=== PATIENT | female | born 1940 | race Hispanic/Latino ===

== ENCOUNTER 2019-01-02 16:37 | Inpatient (IN) | payer MEDICARE ==
[2019-01-03 05:17] LABS: Bacteria,Urine 1+ /HPF (Negative); Bilirubin,Urine NEG (Negative); Blood,Urine NEG (Negative); Color,Urine Yellow (Yellow); Mucus,Urine FEW /HPF; Protein,Urine <15 mg/dL mg/dL (Negative); Urobilinogen,Urine < 2.0 mg/dL (<2.0)
[2019-01-03 07:37] LABS: Basophils % (Auto) 0.4 % (0.0-1.8); Eosinophils # (Auto) 0.1 K/mm3 (0.0-0.4); Eosinophils % (Auto) 1.1 % (0.0-4.3); Hematocrit 34.4 % (30.3-42.9); Hemoglobin 11.8 gm/dl (10.1-14.3); Lymphocytes % (Auto) 15.9 % (13.4-35.0); Mean Corpuscular HGB Conc 34 % (30-34); Mean Corpuscular Volume 95 fl (79-97); Monocytes # (Auto) 0.6 K/mm3 (0.0-0.8); Monocytes % (Auto) 9.2 % (0.0-7.3); Platelet Count 126 K/mm3 (140-440); Red Blood Count 3.62 M/mm3 (3.65-5.03); Red Cell Distribution Width 13.6 % (13.2-15.2)
[2019-01-03 08:03] LABS: Alanine Aminotransferase 17 units/L (7-56); Albumin 3.4 g/dL (3.9-5); BUN/Creatinine Ratio 21; Blood Urea Nitrogen 15 mg/dL (7-17); Calcium 9.1 mg/dL (8.4-10.2); Chol/HDL Ratio 2.15 %; HDL Cholesterol 60 mg/dL (40-59); Hemolysis Index 18; LDL Cholesterol,Direct 71 mg/dL (50-130)
--- NOTE | 2019-01-03 09:10 | History and Physical Report ---
GP History & Physical - History of Present Illness Date of admission: 01/02/19 Date of Examination: 01/03/19 Reason for Admission: Danger to self, Severe anxiety/depression Chief Complaint: Depressed and suicidal History of Present Illness: The patient is a 78yo female with history of MDD, Alzheimer's dementia and multiple medical problems including Arthritis and Lupus. She was transferred from [facility] after medical stabilization following an overdose of Tylenol. Patient reportedly attempted suicide by overdosing on 15 tablets of Tylenol on 12/29/18. She continues to endorse being severely depressed. Her 1 year ago. This is a significant stressor for her. She fears being put in a Senior [facility] too. She endorses decreased appetite, energy and sleep. She denies hallucinations/paranoia. 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's disease, without behavioral disturbance (Acute) Reaction to Hospitalization: Accepting Substance History - Substance History Drug Use: none Hx Tobacco Use: No Alcohol Use: No Past psychiatric history - Past Medical History Past Medical History: arthritis, other (Lupus) - past Psychiatric treatment and history Psych: Depression - Social History Social history: , Lives alone (daughter lives within a walking distance) Review of Systems All systems: negative Psychiatric: anxiety, change in sleep habits, change in appetite, depression, hopelessness, anhedonia Results - Results Labs/Vitals: Laboratory Last Values WBC 6.0 K/mm3 (4.5-11.0) 01/03/19 07:18 RBC 3.62 M/mm3 (3.65-5.03) L 01/03/19 07:18 Hgb 11.8 gm/dl (10.1-14.3) 01/03/19 07:18 Hct 34.4 % (30.3-42.9) 01/03/19 07:18 MCV 95 fl (79-97) 01/03/19 07:18 MCH 33 pg (28-32) H 01/03/19 07:18 MCHC 34 % (30-34) 01/03/19 07:18 RDW 13.6 % (13.2-15.2) 01/03/19 07:18 Plt Count 126 K/mm3 (140-440) L 01/03/19 07:18 Lymph % (Auto) 15.9 % (13.4-35.0) 01/03/19 07:18 [place] % (Auto) 9.2 % (0.0-7.3) H 01/03/19 07:18 Eos % (Auto) 1.1 % (0.0-4.3) 01/03/19 07:18 Baso % (Auto) 0.4 % (0.0-1.8) 01/03/19 07:18 Lymph # 1.0 K/mm3 (1.2-5.4) L 01/03/19 07:18 [place] # 0.6 K/mm3 (0.0-0.8) 01/03/19 07:18 Eos # 0.1 K/mm3 (0.0-0.4) 01/03/19 07:18 Baso # 0.0 K/mm3 (0.0-0.1) 01/03/19 07:18 Seg Neutrophils % 73.4 % (40.0-70.0) H 01/03/19 07:18 Seg Neutrophils # 4.4 K/mm3 (1.8-7.7) 01/03/19 07:18 Sodium 136 mmol/L (137-145) L 01/03/19 07:18 Potassium 4.4 mmol/L (3.6-5.0) 01/03/19 07:18 Chloride 102.2 mmol/L (98-107) 01/03/19 07:18 Carbon Dioxide 23 mmol/L (22-30) 01/03/19 07:18 15 mmol/L 01/03/19 07:18 BUN 15 mg/dL (7-17) 01/03/19 07:18 0.7 mg/dL (0.7-1.2) 01/03/19 07:18 Estimated GFR > 60 ml/min 01/03/19 07:18 21 % 01/03/19 07:18 Glucose 88 mg/dL (65-100) 01/03/19 07:18 POC Glucose 92 (70-105) 01/02/19 23:02 5.4 % (4-6) 01/03/19 07:18 Calcium 9.1 mg/dL (8.4-10.2) 01/03/19 07:18 0.20 mg/dL (0.1-1.2) 01/03/19 07:18 AST 19 units/L (5-40) 01/03/19 07:18 ALT 17 units/L (7-56) 01/03/19 07:18 60 units/L (35-129) 01/03/19 07:18 5.1 g/dL (6.3-8.2) L 01/03/19 07:18 3.4 g/dL (3.9-5) L 01/03/19 07:18 2.0 % 01/03/19 07:18 Triglycerides 101 mg/dL (2-149) 01/03/19 07:18 Cholesterol 129 mg/dL (50-199) 01/03/19 07:18 71 mg/dL (50-130) 01/03/19 07:18 60 mg/dL (40-59) H 01/03/19 07:18 2.15 % 01/03/19 07:18 Yellow (Yellow) 01/03/19 04:58 Slightly-cloudy (Clear) 01/03/19 04:58 5.0 (5.0-7.0) 01/03/19 04:58 Ur Specific [place] 1.009 (1.003-1.030) 01/03/19 04:58 <15 mg/dl mg/dL (Negative) 01/03/19 04:58 Neg mg/dL (Negative) 01/03/19 04:58 Neg mg/dL (Negative) 01/03/19 04:58 Neg (Negative) 01/03/19 04:58 Neg (Negative) 01/03/19 04:58 Neg (Negative) 01/03/19 04:58 < 2.0 mg/dL (<2.0) 01/03/19 04:58 Ur Leukocyte Esterase Lg (Negative) 01/03/19 04:58 127.0 /HPF (0.0-6.0) H 01/03/19 04:58 4.0 /HPF (0.0-6.0) 01/03/19 04:58 1+ /HPF (Negative) 01/03/19 04:58 Few /HPF 01/03/19 04:58 Last Vital Signs Temp 97.7 F 01/02/19 22:48 Pulse 65 01/02/19 22:48 Resp 18 01/02/19 22:48 BP 142/59 01/02/19 22:48 Pulse Ox 97 01/02/19 22:48 Physical Examination - Constitutional Vitals: Vital Signs Temp Pulse Resp BP Pulse Ox 97.7 F 65 18 142/59 97 01/02/19 22:48 01/02/19 22:48 01/02/19 22:48 01/02/19 22:48 01/02/19 22:48 Temperature -Last 24 Hours Temperature 97.7 F General appearance: Present: no acute distress, well-nourished - EENT Eyes: Present: PERRL, EOM intact ENT: hearing intact, clear oral mucosa - Neck Neck: Present: supple, normal ROM - Respiratory Respiratory effort: normal Mental Status Exam - Vital signs Last Vital Signs Temp 97.7 F 01/02/19 22:48 Pulse 65 01/02/19 22:48 Resp 18 01/02/19 22:48 BP 142/59 01/02/19 22:48 Pulse Ox 97 01/02/19 22:48 - Exam Orientation: time, place, person Affect: depressed Mood: congruent with affect Thought Process: Intact Perceptions: none Speech: normal rate and pattern Concentration: focused Motor activity: lethargic Level of consciousness: alert Memory: Recent Impaired Sleep Symptoms: Insomnia Appetite: decreased Interaction: cooperative Assessment and Plan - Psychiatric problem (1) MDD (major depressive disorder), recurrent episode, severe Current Visit: Yes Status: Acute plan to address problem: Patient will be admitted for inpatient psychiatric evaluation, medication adjustment and close monitoring The patient's behavior, mood, sleep and appetite will be closely monitored. Patient will be enrolled in individual and group therapeutic sessions and encouraged to attend. Patient will be provided with a safe and structured environment. Patient's physical health needs will be addressed by the Hospitalist. Social Assessment will be completed and the Manager Pulmonary will work with patient and family to ensure a suitable and safe disposition Medication adjustment will be made as clinically indicated The patient agreed on the treatment plan, understood the risk, benefit, alternative treatment, potential consequence of no treatment, and gave informed consent. 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, without behavioral disturbance Current Visit: Yes Status: Acute Physician Certification - Certification Statement Physician Certification Statement: This is an acknowledgement statement that TIFFANIE KEANE is a 78 year old F who requires inpatient psychiatric admission for treatment which could reasonably be expected to improve the patient's condition for Depression Estimated period of time patient will need to remain in the hospital: 7 days Plan for post-hospital care: Out-patient care Medications & Allergies - Medications Allergies/Adverse Reactions: Allergies codeine Allergy (Unverified 01/02/19 17:51) Unknown promethazine [From Phenergan] Adverse Reaction (Unverified 01/02/19 17:51) Unknown Sulfa (Sulfonamide Antibiotics) Adverse Reaction (Unverified 01/02/19 17:51) Unknown Home Medications: Home Medications Medication Instructions Recorded Confirmed Last Taken Type Atorvastatin 40 mg PO QHS 01/02/19 01/02/19 01/02/19 History Clopidogrel [Plavix] 75 mg PO QPM 01/02/19 01/02/19 01/02/19 History Desvenlafaxine Fumarate 50 mg PO DAILY 01/02/19 01/02/19 01/02/19 History [Desvenlafaxine Fumarate ER] Hydroxychloroquine [Plaquenil] 200 mg PO QDAY 01/02/19 01/02/19 01/02/19 History Levothyroxine 75 mcg PO DAILY 01/02/19 01/03/19 01/02/19 History Lisinopril [Zestril TAB] 20 mg PO QDAY 01/02/19 01/03/19 01/02/19 History Montelukast [Singulair] 10 mg PO DAILY 01/02/19 01/03/19 01/02/19 History Pantoprazole [Protonix TAB] 40 mg PO DAILY 01/02/19 01/02/19 Unknown History Potassium Chloride [Klor-Con 10 meq PO BID 01/02/19 01/02/19 01/02/19 History Sprinkle] Risperdal 1.5 mg PO DAILY 01/02/19 01/02/19 01/02/19 History Risperdal 2 mg PO QPM 01/02/19 01/02/19 Unknown History Rivastigmine Patch 13.3mg/24hr 13.3 mg TRANSDERMA QDAY 01/02/19 01/02/19 01/02/19 History predniSONE 5 mg PO DAILY 01/02/19 01/02/19 01/02/19 History traMADol 50 mg PO Q12HR PRN 01/02/19 01/02/19 01/02/19 History Active Medications: Generic Name Dose Route Start Last Admin Trade Name Tara PRN Reason Stop Dose Admin Mirtazapine 15 mg 01/03/19 22:00 Remeron PO QHS [facility] Miscellaneous Medication 13.3 mg 01/03/19 10:00 Rivastigmine Patch 13.3mg/24hr TRANSDERMA QDAY [facility] Miscellaneous Medication 1.5 mg 01/03/19 10:00 Risperdal PO DAILY [facility] Miscellaneous Medication 2 mg 01/03/19 18:00 Risperdal PO QPM [facility] Miscellaneous Medication 50 mg 01/03/19 10:00 Desvenlafaxine Fumarate [Desvenlafaxine Fumarate Er] PO DAILY NASEEM
[2019-01-03] MEDS ORDERED: risperiDONE 1 MG TAB PO SCH (10:00)
[2019-01-03] MEDS ORDERED: RISPERIDONE 1.5 MG PO SCH (10:00)
[2019-01-03] MEDS ORDERED: RIVASTIGMINE TP SCH (10:00)
[2019-01-03] MEDS ORDERED: [UNRECOGNIZED DRUG - OTHER] PO SCH (10:00)
[2019-01-03] MEDS: DULoxetine 30 MG CAP PO SCH ×2 (11:33→21:09)
[2019-01-03] MEDS: risperiDONE 1 MG TAB PO SCH (17:03)
[2019-01-03] MEDS ORDERED: RISPERDAL 2 MG PO SCH (18:00)
--- NOTE | 2019-01-03 19:04 | Consultation ---
History of Present Illness - Reason for Consult Consult date: 01/03/19 MEDICAL MANAGEMENT, RIGHT FLANK PAIN Requesting physician: KAMRYN PARRA - History of Present Illness Patient is a 78 year old female with hx of of MDD, Alzheimer's dementia and multiple medical problems including Arthritis and Lupus. She was transferred from [facility] after medical stabilization following an overdose of Tylenol. Patient reportedly attempted suicide by overdosing on 15 tablets of Tylenol on 12/29/18. [facility] and we are asked to evaluate. She reports right flank pain otherwise informs me that she is depressed. She denies any fever, nausea or vomiting, she reportts increased urine frequency but no dysuria Past History Past Medical History: arthritis, other (Lupus) Past Surgical History: denies: No surgical history Social history: , Lives alone (daughter lives within a walking distance) Family history: no significant family history Medications and Allergies Allergies Allergy/AdvReac Type Severity Reaction Status Date / Time codeine Allergy Unknown Unverified 01/02/19 17:51 promethazine [From Phenergan] AdvReac Unknown Unverified 01/02/19 17:51 Sulfa (Sulfonamide AdvReac Unknown Unverified 01/02/19 17:51 Antibiotics) Home Medications Medication Instructions Recorded Confirmed Last Taken Type Atorvastatin 40 mg PO QHS 01/02/19 01/02/19 01/02/19 History Clopidogrel [Plavix] 75 mg PO QPM 01/02/19 01/02/19 01/02/19 History Desvenlafaxine Fumarate 50 mg PO DAILY 01/02/19 01/02/19 01/02/19 History [Desvenlafaxine Fumarate ER] Hydroxychloroquine [Plaquenil] 200 mg PO QDAY 01/02/19 01/02/19 01/02/19 History Levothyroxine 75 mcg PO DAILY 01/02/19 01/03/19 01/02/19 History Lisinopril [Zestril TAB] 20 mg PO QDAY 01/02/19 01/03/19 01/02/19 History Montelukast [Singulair] 10 mg PO DAILY 01/02/19 01/03/19 01/02/19 History Pantoprazole [Protonix TAB] 40 mg PO DAILY 01/02/19 01/02/19 Unknown History Potassium Chloride [Klor-Con 10 meq PO BID 01/02/19 01/02/19 01/02/19 History Sprinkle] Risperdal 1.5 mg PO DAILY 01/02/19 01/02/19 01/02/19 History Risperdal 2 mg PO QPM 01/02/19 01/02/19 Unknown History Rivastigmine Patch 13.3mg/24hr 13.3 mg TRANSDERMA QDAY 01/02/19 01/02/19 01/02/19 History predniSONE 5 mg PO DAILY 01/02/19 01/02/19 01/02/19 History traMADol 50 mg PO Q12HR PRN 01/02/19 01/02/19 01/02/19 History Active Meds: Active Medications Duloxetine HCl (Cymbalta) 30 mg PO BID [facility] Last Admin: 01/03/19 11:33 Dose: 30 mg Documented by: Levofloxacin (Levaquin) 500 mg PO Q24HR [facility] Stop: 01/05/19 10:01 Mirtazapine (Remeron) 15 mg PO QHS [facility] Miscellaneous Medication (Rivastigmine Patch 13.3mg/24hr) 13.3 mg TP QDAY [facility] Stop: 01/03/19 11:00 Miscellaneous Medication (Desvenlafaxine Fumarate [Desvenlafaxine Fumarate Er]) 50 mg PO DAILY [facility] Stop: 01/03/19 11:00 Risperidone (Risperdal) 1.5 mg PO QAM [facility] Last Admin: 01/03/19 10:06 Dose: 1.5 mg Documented by: Risperidone (Risperdal) 2 mg PO QPM [facility] Last Admin: 01/03/19 17:03 Dose: 2 mg Documented by: Review of Systems All systems: negative Constitutional: malaise, lethargy, poor appetite Ears, nose, mouth and throat: no tinnitis, no nose pain, no hoarseness, no swelling in throat, no odynophagia Cardiovascular: no chest pain, no rapid/irregular heart beat, no edema, no syncope, no paroxysmal nocturnal dyspnea, no phlebitis Respiratory: no cough with sputum, no hemoptysis, no shortness of breath, no wheezing, no pain, no sleep apnea Gastrointestinal: no vomiting, no constipation, no hematemesis, no hematochezia, no heartburn, no indigestion, no dyspepsia/bloating Genitourinary Female: flank pain (right), urinary frequency, no dysuria, no urgency, no stress incontinence, no post void dribbling, no incomplete emptying, no urge incontinence, no mixed incontinence, no difficulty voiding, no vaginal odor, no abnormal vaginal bleeding Rectal: no itching, no discharge Musculoskeletal: arthritis, no neck stiffness, no shooting arm pain, no leg numbness/tingling, no muscle weakness, no atrophy, no loss of height Integumentary: no rash, no sores, no jaundice, no lesions, no acne, no brittle nails, no hirsutism, no foot/leg ulcers Neurological: no weakness, no tingling, no seizures, no tremors, no migraines, no aphasia, no memory loss, no double vision Psychiatric: anxiety, change in sleep habits, change in appetite, hopelessness, anhedonia Endocrine: no cold intolerance, no nocturia, no flushing, no weight change, no deepening of the voice, no high blood sugars Hematologic/Lymphatic: no easy bleeding Allergic/Immunologic: no allergic rhinitis Exam - Physical Exam Narrative exam: VITAL SIGNS: Reviewed. GENERAL: The patient appears normally developed, withdrawan Vital signs as documented. HEAD: No signs of head trauma. EYES: Pupils are equal. Extraocular motions intact. EARS: Hearing grossly intact. MOUTH: Oropharynx is normal. NECK: No adenopathy, no JVD. CHEST: Chest with clear breath sounds bilaterally. No wheezes, rales, or rhonchi. CARDIAC: Regular rate and rhythm. S1 and S2, without murmurs, gallops, or rubs. VASCULAR: No Edema. Peripheral pulses normal and equal in all extremities. ABDOMEN: Soft, right cva tender and non distended. No rebound or guarding, and no masses palpated. Bowel Sounds normal. MUSCULOSKELETAL: Good range of motion of all major joints. Extremities without clubbing, cyanosis or edema. NEUROLOGIC EXAM: awake and oriented x 3 No focal sensory or strength deficits. Speech normal. Follows commands. PSYCHIATRIC: Mood normal. SKIN: detail exam as documented in skin assessment, pale appearing - Constitutional Vitals: Temp Pulse Resp BP Pulse Ox 97.7 F 93 H 18 107/47 98 01/02/19 22:48 01/03/19 09:43 01/03/19 09:43 01/03/19 09:43 01/03/19 09:43 Results - Labs CBC & Chem 7: 01/03/19 07:18 01/03/19 07:18 Labs: Abnormal lab results 01/03/19 01/03/19 01/03/19 Range/Units 04:58 07:18 07:18 RBC 3.62 L (3.65-5.03) M/mm3 MCH 33 H (28-32) pg Plt Count 126 L (140-440) K/mm3 [place] % (Auto) 9.2 H (0.0-7.3) % Lymph # 1.0 L (1.2-5.4) K/mm3 Seg Neutrophils % 73.4 H (40.0-70.0) % Sodium 136 L (137-145) mmol/L Total Protein 5.1 L (6.3-8.2) g/dL Albumin 3.4 L (3.9-5) g/dL HDL Cholesterol 60 H (40-59) mg/dL Urine WBC (Auto) 127.0 H (0.0-6.0) /HPF Assessment and Plan Patient is a 78 year old female with hx of of MDD, Alzheimer's dementia and multiple medical problems including Arthritis and Lupus. She was transferred from [facility] after medical stabilization following an over dose of Tylenol. Patient reportedly attempted suicide by overdosing on 15 tablets of Tylenol on 12/29/18. Patient is admitted to the [facility] unit and we are asked to evaluate. She reports right flank pain otherwise informs me that she is depressed. She denies any fever, nausea or vomiting, she reportts increased urine frequency but no dysuria ACUTE CYSTITIS RIGHT FLANK PAIN MDD (major depressive disorder), recurrent episode, severe (Acute) Major neurocognitive disorder due to Alzheimer's disease, without behavioral disturbance (Acute) PLAN Continue management per Psych team Start on Emperic abx for 3 days tx with levaquin Obtain urine culture DVT/GI prophy Thank you for letting us take part in the care of your patient, please reconsult as needed
[2019-01-03] MEDS: levoFLOXacin 500 MG TAB PO SCH (21:10)
[2019-01-03] MEDS: MIRTAZAPINE 15 MG TAB PO SCH (21:10)
[2019-01-04] MEDS: DULoxetine 30 MG CAP PO SCH ×2 (09:17→21:42)
[2019-01-04] MEDS: levoFLOXacin 500 MG TAB PO SCH (09:17)
--- NOTE | 2019-01-04 09:17 | Progress Note ---
Subjective Date of service: 01/04/19 Principal diagnosis: Major depressive disorder recurent severe Subjective Comment: The patient is alert and oriented x's 2-3, isolative, withdrawn, and depressed. She is cooperative with cares and medication compliant. No reported or observed side effects. She denies current si/hi/avh/paranoia. MSE Orientation: time, place, person Affect: depressed Mood: congruent with affect Thought Process: Intact Perceptions: none Speech: normal rate and pattern Concentration: focused Motor activity: lethargic Level of consciousness: alert Memory: Recent Impaired Sleep Symptoms: Insomnia Appetite: decreased Interaction: cooperative Objective - Criteria for Continued Treatment Criteria for Continued Treatment: Improving Level of Functioning, Reducing Isolative Behaviors, Stablizing Level of Functioning, Improving Emotional/Socia - Objective Observation Participation Level: Moderate Assessment and Plan - Patient Problems (1) MDD (major depressive disorder), recurrent episode, severe Current Visit: Yes Status: Acute Plan to address problem: Patient will be admitted for inpatient psychiatric evaluation, medication adjustment and close monitoring The patient's behavior, mood, sleep and appetite will be closely monitored. Patient will be enrolled in individual and group therapeutic sessions and encouraged to attend. Patient will be provided with a safe and structured environment. Patient's physical health needs will be addressed by the Hospitalist. Social Assessment will be completed and the Maintenance Of Way Clerk will work with patient and family to ensure a suitable and safe disposition Medication adjustment will be made as clinically indicated The patient agreed on the treatment plan, understood the risk, benefit, alternative treatment, potential consequence of no treatment, and gave informed consent. 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, without behavioral disturbance Current Visit: Yes Status: Acute Medications & Allergies - Medications Allergies/Adverse Reactions: Allergies codeine Allergy (Unverified 01/02/19 17:51) Unknown promethazine [From Phenergan] Adverse Reaction (Unverified 01/02/19 17:51) Unknown Sulfa (Sulfonamide Antibiotics) Adverse Reaction (Unverified 01/02/19 17:51) Unknown Home Medications: Home Medications Medication Instructions Recorded Confirmed Last Taken Type Atorvastatin 40 mg PO QHS 01/02/19 01/02/19 01/02/19 History Clopidogrel [Plavix] 75 mg PO QPM 01/02/19 01/02/19 01/02/19 History Desvenlafaxine Fumarate 50 mg PO DAILY 01/02/19 01/02/19 01/02/19 History [Desvenlafaxine Fumarate ER] Hydroxychloroquine [Plaquenil] 200 mg PO QDAY 01/02/19 01/02/19 01/02/19 History Levothyroxine 75 mcg PO DAILY 01/02/19 01/03/19 01/02/19 History Lisinopril [Zestril TAB] 20 mg PO QDAY 01/02/19 01/03/19 01/02/19 History Montelukast [Singulair] 10 mg PO DAILY 01/02/19 01/03/19 01/02/19 History Pantoprazole [Protonix TAB] 40 mg PO DAILY 01/02/19 01/02/19 Unknown History Potassium Chloride [Klor-Con 10 meq PO BID 01/02/19 01/02/19 01/02/19 History Sprinkle] Risperdal 1.5 mg PO DAILY 01/02/19 01/02/19 01/02/19 History Risperdal 2 mg PO QPM 01/02/19 01/02/19 Unknown History Rivastigmine Patch 13.3mg/24hr 13.3 mg TRANSDERMA QDAY 01/02/19 01/02/19 01/02/19 History predniSONE 5 mg PO DAILY 01/02/19 01/02/19 01/02/19 History traMADol 50 mg PO Q12HR PRN 01/02/19 01/02/19 01/02/19 History Active Medications: Generic Name Dose Route Start Last Admin Trade Name Freq PRN Reason Stop Dose Admin Duloxetine HCl 30 mg 01/03/19 12:00 01/03/19 21:09 Cymbalta PO 30 mg BID NASEEM Administration Levofloxacin 500 mg 01/03/19 20:00 01/03/19 21:10 Levaquin PO 01/05/19 10:01 500 mg Q24HR NASEEM Administration Mirtazapine 15 mg 01/03/19 22:00 01/03/19 21:10 Remeron PO 15 mg QHS NASEEM Administration Miscellaneous Medication 13.3 mg 01/03/19 10:00 Rivastigmine Patch 13.3mg/24hr TP 01/03/19 11:00 QDAY NASEEM Miscellaneous Medication 50 mg 01/03/19 10:00 Desvenlafaxine Fumarate [Desvenlafaxine Fumarate Er] PO 01/03/19 11:00 DAILY NASEEM Risperidone 2 mg 01/03/19 18:00 01/03/19 17:03 Risperdal PO 2 mg QPM NASEEM Administration Risperidone 0.5 mg 01/04/19 10:00 Risperdal PO QAM NASEEM Risperidone 1 mg 01/04/19 10:00 Risperdal PO QAM NASEEM
[2019-01-04] MEDS: risperiDONE 0.25 MG TAB PO SCH (09:32)
[2019-01-04] MEDS: risperiDONE 1 MG TAB PO SCH ×2 (09:32→17:27)
[2019-01-04] MEDS: MIRTAZAPINE 15 MG TAB PO SCH (21:42)
[2019-01-05] MEDS: DULoxetine 30 MG CAP PO SCH ×2 (10:51→21:16)
[2019-01-05] MEDS: risperiDONE 0.25 MG TAB PO SCH (10:52)
[2019-01-05] MEDS: risperiDONE 1 MG TAB PO SCH ×2 (10:52→17:14)
[2019-01-05] MEDS: levoFLOXacin 500 MG TAB PO SCH (10:52)
[2019-01-05] MEDS: MIRTAZAPINE 15 MG TAB PO SCH (21:16)
[2019-01-06] MEDS: risperiDONE 0.25 MG TAB PO SCH (09:33)
[2019-01-06] MEDS: DULoxetine 30 MG CAP PO SCH ×2 (09:34→21:36)
[2019-01-06] MEDS: risperiDONE 1 MG TAB PO SCH ×2 (09:34→17:32)
[2019-01-06] MEDS ORDERED: DOCUSATE SODIUM 100 MG CAP PO PRN (10:00)
--- NOTE | 2019-01-06 21:09 | Progress Note ---
Subjective Date of service: 01/05/19 Principal diagnosis: Major depressive disorder recurent severe Subjective Comment: The patient is very depressed and withdrawn. She is cooperative with cares and medication compliant. No reported or observed side effects. She denies current si/hi/avh/paranoia. MSE Orientation: time, place, person Affect: depressed Mood: congruent with affect Thought Process: Intact Perceptions: none Speech: normal rate and pattern Concentration: focused Motor activity: lethargic Level of consciousness: alert Memory: Recent Impaired Sleep Symptoms: Insomnia Appetite: decreased Interaction: cooperative Objective - Criteria for Continued Treatment Criteria for Continued Treatment: Improving Level of Functioning, Reducing Isolative Behaviors - Objective Observation Participation Level: Minimal Reason(s) For Not Participating: Not Interested Assessment and Plan - Patient Problems (1) MDD (major depressive disorder), recurrent episode, severe Current Visit: Yes Status: Acute Plan to address problem: Patient will be admitted for inpatient psychiatric evaluation, medication ad justment and close monitoring The patient's behavior, mood, sleep and appetite will be closely monitored. Patient will be enrolled in individual and group therapeutic sessions and encouraged to attend. Patient will be provided with a safe and structured environment. Patient's physical health needs will be addressed by the Hospitalist. Social Assessment will be completed and the Director Of Transportation will work with patient and family to ensure a suitable and safe disposition Medication adjustment will be made as clinically indicated The patient agreed on the treatment plan, understood the risk, benefit, alternative treatment, potential consequence of no treatment, and gave informed consent. 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, without behavioral disturbance Current Visit: Yes Status: Acute Medications & Allergies - Medications Allergies/Adverse Reactions: Allergies Sulfa (Sulfonamide Antibiotics) Allergy (Severe, Verified 01/04/19 19:07) Vomiting codeine Allergy (Verified 01/04/19 19:07) Rash promethazine [From Phenergan] Adverse Reaction (Verified 01/04/19 19:07) Dizziness makes pt "loopy" Home Medications: Home Medications Medication Instructions Recorded Confirmed Last Taken Type Atorvastatin 40 mg PO QHS 01/02/19 01/02/19 01/02/19 History Clopidogrel [Plavix] 75 mg PO QPM 01/02/19 01/02/19 01/02/19 History Desvenlafaxine Fumarate 50 mg PO DAILY 01/02/19 01/02/19 01/02/19 History [Desvenlafaxine Fumarate ER] Hydroxychloroquine [Plaquenil] 200 mg PO QDAY 01/02/19 01/02/19 01/02/19 History Levothyroxine 75 mcg PO DAILY 01/02/19 01/03/19 01/02/19 History Lisinopril [Zestril TAB] 20 mg PO QDAY 01/02/19 01/03/19 01/02/19 History Montelukast [Singulair] 10 mg PO DAILY 01/02/19 01/03/19 01/02/19 History Pantoprazole [Protonix TAB] 40 mg PO DAILY 01/02/19 01/02/19 Unknown History Potassium Chloride [Klor-Con 10 meq PO BID 01/02/19 01/02/19 01/02/19 History Sprinkle] Risperdal 1.5 mg PO DAILY 01/02/19 01/02/19 01/02/19 History Risperdal 2 mg PO QPM 01/02/19 01/02/19 Unknown History Rivastigmine Patch 13.3mg/24hr 13.3 mg TRANSDERMA QDAY 01/02/19 01/02/19 01/02/19 History predniSONE 5 mg PO DAILY 01/02/19 01/02/19 01/02/19 History traMADol 50 mg PO Q12HR PRN 01/02/19 01/02/19 01/02/19 History Active Medications: Generic Name Dose Route Start Last Admin Trade Name Freq PRN Reason Stop Dose Admin Docusate Sodium 100 mg 01/06/19 10:00 01/06/19 12:22 Colace PO 100 mg BID PRN Administration Constipation Duloxetine HCl 30 mg 01/03/19 12:00 01/06/19 09:34 Cymbalta PO 30 mg BID NASEEM Administration Mirtazapine 15 mg 01/03/19 22:00 01/05/19 21:16 Remeron PO 15 mg QHS NASEEM Administration Miscellaneous Medication 13.3 mg 01/03/19 10:00 Rivastigmine Patch 13.3mg/24hr TP 01/03/19 11:00 QDAY NASEEM Miscellaneous Medication 50 mg 01/03/19 10:00 Desvenlafaxine Fumarate [Desvenlafaxine Fumarate Er] PO 01/03/19 11:00 DAILY NASEEM Risperidone 2 mg 01/03/19 18:00 01/06/19 17:32 Risperdal PO 2 mg QPM NASEEM Administration Risperidone 0.5 mg 01/04/19 10:00 01/06/19 09:33 Risperdal PO 0.5 mg QAM NASEEM Administration Risperidone 1 mg 01/04/19 10:00 01/06/19 09:34 Risperdal PO 1 mg QAM NASEEM Administration
--- NOTE | 2019-01-06 21:12 | Progress Note ---
Subjective Date of service: 01/06/19 Principal diagnosis: Major depressive disorder recurent severe Subjective Comment: The patient continues to be very depressed and withdrawn. She isolates and not interactive, prefers to lay all day. She is cooperative with cares and medication compliant. No reported or observed side effects. She denies current si/hi/avh/paranoia. MSE Orientation: time, place, person Affect: depressed Mood: congruent with affect Thought Process: Intact Perceptions: none Speech: normal rate and pattern Concentration: focused Motor activity: lethargic Level of consciousness: alert Memory: Recent Impaired Sleep Symptoms: Insomnia Appetite: decreased Interaction: cooperative Objective - Criteria for Continued Treatment Criteria for Continued Treatment: Improving Level of Functioning, Reducing Isolative Behaviors - Objective Observation Participation Level: Minimal Reason(s) For Not Participating: Not Interested Assessment and Plan - Patient Problems (1) MDD (major depressive disorder), recurrent episode, severe Current Visit: Yes Status: Acute Plan to address problem: Patient will be admitted for inpatient psychiatric evaluation, medication adjustment and close monitoring The patient's behavior, mood, sleep and appetite will be closely monitored. Patient will be enrolled in individual and group therapeutic sessions and encouraged to attend. Patient will be provided with a safe and structured environment. Patient's physical health needs will be addressed by the Hospitalist. Social Assessment will be completed and the Pugger Helper will work with patient and family to ensure a suitable and safe disposition Medication adjustment will be made as clinically indicated The patient agreed on the treatment plan, understood the risk, benefit, alternative treatment, potential consequence of no treatment, and gave informed consent. 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, without behavioral disturbance Current Visit: Yes Status: Acute Medications & Allergies - Medications Allergies/Adverse Reactions: Allergies Sulfa (Sulfonamide Antibiotics) Allergy (Severe, Verified 01/04/19 19:07) Vomiting codeine Allergy (Verified 01/04/19 19:07) Rash promethazine [From Phenergan] Adverse Reaction (Verified 01/04/19 19:07) Dizziness makes pt "loopy" Home Medications: Home Medications Medication Instructions Recorded Confirmed Last Taken Type Atorvastatin 40 mg PO QHS 01/02/19 01/02/19 01/02/19 History Clopidogrel [Plavix] 75 mg PO QPM 01/02/19 01/02/19 01/02/19 History Desvenlafaxine Fumarate 50 mg PO DAILY 01/02/19 01/02/19 01/02/19 History [Desvenlafaxine Fumarate ER] Hydroxychloroquine [Plaquenil] 200 mg PO QDAY 01/02/19 01/02/19 01/02/19 History Levothyroxine 75 mcg PO DAILY 01/02/19 01/03/19 01/02/19 History Lisinopril [Zestril TAB] 20 mg PO QDAY 01/02/19 01/03/19 01/02/19 History Montelukast [Singulair] 10 mg PO DAILY 01/02/19 01/03/19 01/02/19 History Pantoprazole [Protonix TAB] 40 mg PO DAILY 01/02/19 01/02/19 Unknown History Potassium Chloride [Klor-Con 10 meq PO BID 01/02/19 01/02/19 01/02/19 History Sprinkle] Risperdal 1.5 mg PO DAILY 01/02/19 01/02/19 01/02/19 History Risperdal 2 mg PO QPM 01/02/19 01/02/19 Unknown History Rivastigmine Patch 13.3mg/24hr 13.3 mg TRANSDERMA QDAY 01/02/19 01/02/1912/16 History predniSONE 5 mg PO DAILY 01/02/19 01/02/19 01/02/19 History traMADol 50 mg PO Q12HR PRN 01/02/19 01/02/19 01/02/19 History Active Medications: Generic Name Dose Route Start Last Admin Trade Name Freq PRN Reason Stop Dose Admin Docusate Sodium 100 mg 01/06/19 10:00 01/06/19 12:22 Colace PO 100 mg BID PRN Administration Constipation Duloxetine HCl 30 mg 01/03/19 12:00 01/06/19 09:34 Cymbalta PO 30 mg BID NASEEM Administration Mirtazapine 15 mg 01/03/19 22:00 01/05/19 21:16 Remeron PO 15 mg QHS NASEEM Administration Miscellaneous Medication 13.3 mg 01/03/19 10:00 Rivastigmine Patch 13.3mg/24hr TP 01/03/19 11:00 QDAY NASEEM Miscellaneous Medication 50 mg 01/03/19 10:00 Desvenlafaxine Fumarate [Desvenlafaxine Fumarate Er] PO 01/03/19 11:00 DAILY NASEEM Risperidone 2 mg 01/03/19 18:00 01/06/19 17:32 Risperdal PO 2 mg QPM NASEEM Administration Risperidone 0.5 mg 01/04/19 10:00 01/06/19 09:33 Risperdal PO 0.5 mg QAM NASEEM Administration Risperidone 1 mg 01/04/19 10:00 01/06/19 09:34 Risperdal PO 1 mg QAM NASEEM Administration
[2019-01-06] MEDS: MIRTAZAPINE 15 MG TAB PO SCH (21:36)
--- NOTE | 2019-01-07 08:40 | Progress Note ---
Subjective Date of service: 01/07/19 Principal diagnosis: Major depressive disorder recurent severe Subjective Comment: The patient's dietary intake is poor. She is depressed and withdrawn. She isolates and not interactive, prefers to lay all day. She is cooperative with cares and medication compliant. No reported or observed side effects. She denies current si/hi/avh/paranoia. MSE Orientation: time, place, person Affect: depressed Mood: congruent with affect Thought Process: Intact Perceptions: none Speech: normal rate and pattern Concentration: focused Motor activity: lethargic Level of consciousness: alert Memory: Recent Impaired Sleep Symptoms: Insomnia Appetite: decreased Interaction: cooperative Assessment and Plan - Patient Problems (1) MDD (major depressive disorder), recurrent episode, severe Current Visit: Yes Status: Acute Plan to address problem: Patient will be admitted for inpatient psychiatric evaluation, medication adjustment and close monitoring The patient's behavior, mood, sleep and appetite will be closely monitored. Patient will be enrolled in individual and group therapeutic sessions and encouraged to attend. Patient will be provided with a safe and structured environment. Patient's physical health needs will be addressed by the Hospitalist. Social Assessment will be completed and the Power Crane Operator will work with patient and family to ensure a suitable and safe disposition Medication adjustment will be made as clinically indicated Will decrease and discontinue Risperidone - not indicated at this time The patient agreed on the treatment plan, understood the risk, benefit, alternative treatment, potential consequence of no treatment, and gave informed consent. 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, without behavioral disturbance Current Visit: Yes Status: Acute Medications & Allergies - Medications Allergies/Adverse Reactions: Allergies Sulfa (Sulfonamide Antibiotics) Allergy (Severe, Verified 01/04/19 19:07) Vomiting codeine Allergy (Verified 01/04/19 19:07) Rash promethazine [From Phenergan] Adverse Reaction (Verified 01/04/19 19:07) Dizziness makes pt "loopy" Home Medications: Home Medications Medication Instructions Recorded Confirmed Last Taken Type Atorvastatin 40 mg PO QHS 01/02/19 01/02/19 01/02/19 History Clopidogrel [Plavix] 75 mg PO QPM 01/02/19 01/02/19 01/02/19 History Desvenlafaxine Fumarate 50 mg PO DAILY 01/02/19 01/02/19 01/02/19 History [Desvenlafaxine Fumarate ER] Hydroxychloroquine [Plaquenil] 200 mg PO QDAY 01/02/19 01/02/19 01/02/19 History Levothyroxine 75 mcg PO DAILY 01/02/19 01/03/19 01/02/19 History Lisinopril [Zestril TAB] 20 mg PO QDAY 01/02/19 01/03/19 01/02/19 History Montelukast [Singulair] 10 mg PO DAILY 01/02/19 01/03/19 01/02/19 History Pantoprazole [Protonix TAB] 40 mg PO DAILY 01/02/19 01/02/19 Unknown History Potassium Chloride [Klor-Con 10 meq PO BID 01/02/19 01/02/19 01/02/19 History Sprinkle] Risperdal 1.5 mg PO DAILY 01/02/19 01/02/19 01/02/19 History Risperdal 2 mg PO QPM 01/02/19 01/02/19 Unknown History Rivastigmine Patch 13.3mg/24hr 13.3 mg TRANSDERMA QDAY 01/02/19 01/02/19 01/02/19 History predniSONE 5 mg PO DAILY 01/02/19 01/02/19 01/02/19 History traMADol 50 mg PO Q12HR PRN 01/02/19 01/02/19 01/02/19 History Active Medications: Generic Name Dose Route Start Last Admin Trade Name Freq PRN Reason Stop Dose Admin Docusate Sodium 100 mg 01/06/19 10:00 01/06/19 12:22 Colace PO 100 mg BID PRN Administration Constipation Duloxetine HCl 30 mg 01/03/19 12:00 01/06/19 21:36 Cymbalta PO 30 mg BID NASEEM Administration Mirtazapine 15 mg 01/03/19 22:00 01/06/19 21:36 Remeron PO 15 mg QHS NASEEM Administration Miscellaneous Medication 13.3 mg 01/03/19 10:00 Rivastigmine Patch 13.3mg/24hr TP 01/03/19 11:00 QDAY NASEEM Miscellaneous Medication 50 mg 01/03/19 10:00 Desvenlafaxine Fumarate [Desvenlafaxine Fumarate Er] PO 01/03/19 11:00 DAILY NASEEM Risperidone 2 mg 01/03/19 18:00 01/06/19 17:32 Risperdal PO 2 mg QPM NASEEM Administration Risperidone 0.5 mg 01/04/19 10:00 01/06/19 09:33 Risperdal PO 0.5 mg QAM NASEEM Administration Risperidone 1 mg 01/04/19 10:00 01/06/19 09:34 Risperdal PO 1 mg QAM NASEEM Administration
[2019-01-07] MEDS: DULoxetine 30 MG CAP PO SCH ×3 (09:39→22:00)
--- NOTE | 2019-01-07 10:50 | Event Note ---
Date: 01/07/19 Urine culture reviewed, Negative for growth. Complete Abx. No fever. will sign off. Reconsult if needed
[2019-01-07] MEDS: risperiDONE 1 MG TAB PO SCH (18:06)
[2019-01-07] MEDS: ACETAMINOPHEN 325 MG TAB PO PRN (18:06)
[2019-01-07] MEDS: MIRTAZAPINE 15 MG TAB PO SCH ×2 (21:30→22:00)
[2019-01-08] MEDS: DULoxetine 30 MG CAP PO SCH (12:04)
[2019-01-08] MEDS: risperiDONE 1 MG TAB PO SCH (18:05)
[2019-01-09] MEDS: DULoxetine 30 MG CAP PO SCH ×2 (10:19→20:44)
--- NOTE | 2019-01-09 15:19 | Progress Note ---
Subjective Date of service: 01/09/19 Principal diagnosis: Major depressive disorder recurent severe Subjective Comment: The patient's dietary intake is poor. She is depressed and withdrawn. She isolates and not interactive, prefers to lay all day. She is cooperative with cares and medication compliant. No reported or observed side effects. She denies current si/hi/avh/paranoia. MSE Orientation: time, place, person Affect: depressed Mood: congruent with affect Thought Process: Intact Perceptions: none Speech: normal rate and pattern Concentration: focused Motor activity: lethargic Level of consciousness: alert Memory: Recent Impaired Sleep Symptoms: Insomnia Appetite: decreased Interaction: cooperative Objective - Criteria for Continued Treatment Criteria for Continued Treatment: Improving Level of Functioning, Stablizing Level of Functioning, Improving Emotional/Socia - Objective Observation Participation Level: Moderate Assessment and Plan - Patient Problems (1) MDD (major depressive disorder), recurrent episode, severe Current Visit: Yes Status: Acute Plan to address problem: Patient will be admitted for inpatient psychiatric evaluation, medication adjustment and close monitoring The patient's behavior, mood, sleep and appetite will be closely monitored. Patient will be enrolled in individual and group therapeutic sessions and encouraged to attend. Patient will be provided with a safe and structured environment. Patient's physical health needs will be addressed by the Hospitalist. Social Assessment will be completed and the Provider Service Representative will work with patient and family to ensure a suitable and safe disposition Medication adjustment will be made as clinically indicated Will decrease and discontinue Risperidone - not indicated at this time The patient agreed on the treatment plan, understood the risk, benefit, alternative treatment, potential consequence of no treatment, and gave informed consent. 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, without behavioral disturbance Current Visit: Yes Status: Acute Medications & Allergies - Medications Allergies/Adverse Reactions: Allergies Sulfa (Sulfonamide Antibiotics) Allergy (Severe, Verified 01/04/19 19:07) Vomiting codeine Allergy (Verified 01/04/19 19:07) Rash promethazine [From Phenergan] Adverse Reaction (Verified 01/04/19 19:07) Dizziness makes pt "loopy" Home Medications: Home Medications Medication Instructions Recorded Confirmed Last Taken Type Atorvastatin 40 mg PO QHS 01/02/19 01/02/19 01/02/19 History Clopidogrel [Plavix] 75 mg PO QPM 01/02/19 01/02/19 01/02/19 History Desvenlafaxine Fumarate 50 mg PO DAILY 01/02/19 01/02/19 01/02/19 History [Desvenlafaxine Fumarate ER] Hydroxychloroquine [Plaquenil] 200 mg PO QDAY 01/02/19 01/02/19 01/02/19 History Levothyroxine 75 mcg PO DAILY 01/02/19 01/03/19 01/02/19 History Lisinopril [Zestril TAB] 20 mg PO QDAY 01/02/19 01/03/19 01/02/19 History Montelukast [Singulair] 10 mg PO DAILY 01/02/19 01/03/19 01/02/19 History Pantoprazole [Protonix TAB] 40 mg PO DAILY 01/02/19 01/02/19 Unknown History Potassium Chloride [Klor-Con 10 meq PO BID 01/02/19 01/02/19 01/02/19 History Sprinkle] Risperdal 1.5 mg PO DAILY 01/02/19 01/02/19 01/02/19 History Risperdal 2 mg PO QPM 01/02/19 01/02/19 Unknown History Rivastigmine Patch 13.3mg/24hr 13.3 mg TRANSDERMA QDAY 01/02/19 01/02/19 01/02/19 History predniSONE 5 mg PO DAILY 01/02/19 01/02/19 01/02/19 History traMADol 50 mg PO Q12HR PRN 01/02/19 01/02/19 01/02/19 History Active Medications: Generic Name Dose Route Start Last Admin Trade Name Nav PRN Reason Stop Dose Admin Acetaminophen 650 mg 01/07/19 09:31 01/07/19 18:06 Tylenol PO 650 mg Q6H PRN Administration Pain, Mild (1-3) Docusate Sodium 100 mg 01/06/19 10:00 01/06/19 12:22 Colace PO 100 mg BID PRN Administration Constipation Duloxetine HCl 30 mg 01/03/19 12:00 01/09/19 10:19 Cymbalta PO 30 mg BID NASEEM Administration Mirtazapine 15 mg 01/03/19 22:00 01/07/19 22:00 Remeron PO 15 mg QHS NASEEM Administration Miscellaneous Medication 13.3 mg 01/03/19 10:00 Rivastigmine Patch 13.3mg/24hr TP 01/03/19 11:00 QDAY NASEEM Miscellaneous Medication 50 mg 01/03/19 10:00 Desvenlafaxine Fumarate [Desvenlafaxine Fumarate Er] PO 01/03/19 11:00 DAILY NASEEM Risperidone 2 mg 01/03/19 18:00 01/08/19 18:05 Risperdal PO 2 mg QPM NASEEM Administration
[2019-01-09] MEDS: risperiDONE 1 MG TAB PO SCH (17:48)
[2019-01-09] MEDS: MIRTAZAPINE 15 MG TAB PO SCH (21:44)
[2019-01-10] MEDS: DULoxetine 30 MG CAP PO SCH ×3 (08:34→21:54)
--- NOTE | 2019-01-10 11:24 | Progress Note ---
Subjective Date of service: 01/10/19 Principal diagnosis: Major depressive disorder recurent severe Subjective Comment: The patient's mood is improving. She is cooperative with cares and medication compliant. No reported or observed side effects. She denies current si/hi/avh/paranoia. MSE Orientation: time, place, person Affect: depressed Mood: congruent with affect Thought Process: Intact Perceptions: none Speech: normal rate and pattern Concentration: focused Motor activity: lethargic Level of consciousness: alert Memory: Recent Impaired Sleep Symptoms: Insomnia Appetite: decreased Interaction: cooperative Objective - Criteria for Continued Treatment Criteria for Continued Treatment: Improving Level of Functioning, Stablizing Level of Functioning, Improving Emotional/Socia - Objective Observation Participation Level: Moderate Assessment and Plan - Patient Problems (1) MDD (major depressive disorder), recurrent episode, severe Current Visit: Yes Status: Acute Plan to address problem: Patient will be admitted for inpatient psychiatric evaluation, medication adjustment and close monitoring The patient's behavior, mood, sleep and appetite will be closely monitored. Patient will be enrolled in individual and group therapeutic sessions and encouraged to attend. Patient will be provided with a safe and structured environment. Patient's physical health needs will be addressed by the Hospitalist. Social Assessment will be completed and the Gas Station Supervisor will work with patient and family to ensure a suitable and safe disposition Medication adjustment will be made as clinically indicated Will decrease and discontinue Risperidone - not indicated at this time The patient agreed on the treatment plan, understood the risk, benefit, alternative treatment, potential consequence of no treatment, and gave informed consent. 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, without behavioral disturbance Current Visit: Yes Status: Acute
[2019-01-10] MEDS: ACETAMINOPHEN 325 MG TAB PO PRN (14:16)
[2019-01-10] MEDS: risperiDONE 1 MG TAB PO SCH (17:25)
[2019-01-10] MEDS: MIRTAZAPINE 15 MG TAB PO SCH (21:54)
[2019-01-11] MEDS: DULoxetine 30 MG CAP PO SCH ×3 (08:03→20:11)
[2019-01-11] MEDS: ACETAMINOPHEN 325 MG TAB PO PRN (13:38)
[2019-01-11] MEDS: risperiDONE 1 MG TAB PO SCH (17:00)
[2019-01-11] MEDS: MIRTAZAPINE 15 MG TAB PO SCH (21:17)
[2019-01-12] MEDS: DULoxetine 30 MG CAP PO SCH ×3 (09:30→19:52)
[2019-01-12] MEDS: risperiDONE 1 MG TAB PO SCH (17:30)
--- NOTE | 2019-01-12 17:47 | Progress Note ---
Subjective Date of service: 01/12/19 Principal diagnosis: Major depressive disorder recurent severe Subjective Comment: The patient's mood is improving. She is cooperative with cares and medication compliant. No reported or observed side effects. She denies current si/hi/avh/paranoia. MSE Orientation: time, place, person Affect: depressed Mood: congruent with affect Thought Process: Intact Perceptions: none Speech: normal rate and pattern Concentration: focused Motor activity: lethargic Level of consciousness: alert Memory: Recent Impaired Sleep Symptoms: Insomnia Appetite: decreased Interaction: cooperative Objective - Criteria for Continued Treatment Criteria for Continued Treatment: Improving Level of Functioning, Stablizing Level of Functioning, Improving Emotional/Socia - Objective Observation Participation Level: Moderate Assessment and Plan - Patient Problems (1) MDD (major depressive disorder), recurrent episode, severe Current Visit: Yes Status: Acute Plan to address problem: Patient will be admitted for inpatient psychiatric evaluation, medication adjustment and close monitoring The patient's behavior, mood, sleep and appetite will be closely monitored. Patient will be enrolled in individual and group therapeutic sessions and encouraged to attend. Patient will be provided with a safe and structured environment. Patient's physical health needs will be addressed by the Hospitalist. Social Assessment will be completed and the [employer] will work with patient and family to ensure a suitable and safe disposition Medication adjustment will be made as clinically indicated Will decrease and discontinue Risperidone - not indicated at this time The patient agreed on the treatment plan, understood the risk, benefit, alternative treatment, potential consequence of no treatment, and gave informed consent. 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, without behavioral disturbance Current Visit: Yes Status: Acute Medications & Allergies - Medications Allergies/Adverse Reactions: Allergies Sulfa (Sulfonamide Antibiotics) Allergy (Severe, Verified 01/04/19 19:07) Vomiting codeine Allergy (Verified 01/04/19 19:07) Rash promethazine [From Phenergan] Adverse Reaction (Verified 01/04/19 19:07) Dizziness makes pt "loopy" Home Medications: Home Medications Medication Instructions Recorded Confirmed Last Taken Type Atorvastatin 40 mg PO QHS 01/02/19 01/02/19 01/02/19 History Clopidogrel [Plavix] 75 mg PO QPM 01/02/19 01/02/19 01/02/19 History Desvenlafaxine Fumarate 50 mg PO DAILY 01/02/19 01/02/1901/02/19 History [Desvenlafaxine Fumarate ER] Hydroxychloroquine [Plaquenil] 200 mg PO QDAY 01/02/19 01/02/19 01/02/19 History Levothyroxine 75 mcg PO DAILY 01/02/19 01/03/19 01/02/19 History Lisinopril [Zestril TAB] 20 mg PO QDAY 01/02/19 01/03/19 01/02/19 History Montelukast [Singulair] 10 mg PO DAILY 01/02/19 01/03/19 01/02/19 History Pantoprazole [Protonix TAB] 40 mg PO DAILY 01/02/19 01/02/19 Unknown History Potassium Chloride [Klor-Con 10 meq PO BID 01/02/19 01/02/19 01/02/19 History Sprinkle] Risperdal 1.5 mg PO DAILY 01/02/19 01/02/19 01/02/19 History Risperdal 2 mg PO QPM 01/02/19 01/02/19 Unknown History Rivastigmine Patch 13.3mg/24hr 13.3 mg TRANSDERMA QDAY 01/02/19 01/02/19 01/02/19 History predniSONE 5 mg PO DAILY 01/02/19 01/02/19 01/02/19 History traMADol 50 mg PO Q12HR PRN 01/02/19 01/02/19 01/02/19 History Active Medications: Generic Name Dose Route Start Last Admin Trade Name Freq PRN Reason Stop Dose Admin Acetaminophen 650 mg 01/07/19 09:31 01/11/19 13:38 Tylenol PO 650 mg Q6H PRN Administration Pain, Mild (1-3) Docusate Sodium 100 mg 01/06/19 10:00 01/06/19 12:22 Colace PO 100 mg BID PRN Administration Constipation Duloxetine HCl 30 mg 01/09/19 20:00 01/12/19 14:11 Cymbalta PO 30 mg TID NASEEM Administration Mirtazapine 15 mg 01/03/19 22:00 01/11/19 21:17 Remeron PO 15 mg QHS NASEEM Administration Miscellaneous Medication 13.3 mg 01/03/19 10:00 Rivastigmine Patch 13.3mg/24hr TP 01/03/19 11:00 QDAY NASEEM Miscellaneous Medication 50 mg 01/03/19 10:00 Desvenlafaxine Fumarate [Desvenlafaxine Fumarate Er] PO 01/03/19 11:00 DAILY NASEEM Risperidone 1 mg 01/09/19 15:22 01/12/19 17:30 Risperdal PO 1 mg QPM NASEEM Administration
[2019-01-12] MEDS: MIRTAZAPINE 15 MG TAB PO SCH (21:23)
--- NOTE | 2019-01-13 09:21 | Progress Note ---
Subjective Date of service: 01/13/19 Principal diagnosis: Major depressive disorder recurent severe Subjective Comment: The patient's mood is improved. She is cooperative with cares and medication compliant. No reported or observed side effects. She denies current si/hi/avh/paranoia. MSE Orientation: time, place, person Affect: depressed Mood: congruent with affect Thought Process: Intact Perceptions: none Speech: normal rate and pattern Concentration: focused Motor activity: lethargic Level of consciousness: alert Memory: Recent Impaired Sleep Symptoms: Insomnia Appetite: decreased Interaction: cooperative Objective - Criteria for Continued Treatment Criteria for Continued Treatment: Stablizing Level of Functioning, Improving Emotional/Socia - Objective Observation Participation Level: Moderate Assessment and Plan - Patient Problems (1) MDD (major depressive disorder), recurrent episode, severe Current Visit: Yes Status: Acute Plan to address problem: Patient will be admitted for inpatient psychiatric evaluation, medication adjustment and close monitoring The patient's behavior, mood, sleep and appetite will be closely monitored. Patient will be enrolled in individual and group therapeutic sessions and encouraged to attend. Patient will be provided with a safe and structured environment. Patient's physical health needs will be addressed by the Hospitalist. Social Assessment will be completed and the Ict Analyst will work with patient and family to ensure a suitable and safe disposition Medication adjustment will be made as clinically indicated Will decrease and discontinue Risperidone - not indicated at this time The patient agreed on the treatment plan, understood the risk, benefit, alterna tive treatment, potential consequence of no treatment, and gave informed consent. 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, without behavioral disturbance Current Visit: Yes Status: Acute Medications & Allergies - Medications Allergies/Adverse Reactions: Allergies Sulfa (Sulfonamide Antibiotics) Allergy (Severe, Verified 01/04/19 19:07) Vomiting codeine Allergy (Verified 01/04/19 19:07) Rash promethazine [From Phenergan] Adverse Reaction (Verified 01/04/19 19:07) Dizziness makes pt "loopy" Home Medications: Home Medications Medication Instructions Recorded Confirmed Last Taken Type Atorvastatin 40 mg PO QHS 01/02/19 01/02/19 01/02/19 History Clopidogrel [Plavix] 75 mg PO QPM 01/02/19 01/02/19 01/02/19 History Hydroxychloroquine [Plaquenil] 200 mg PO QDAY 0901/02/19 01/02/19 History Levothyroxine 75 mcg PO DAILY 01/02/19 01/03/19 01/02/19 History Lisinopril [Zestril TAB] 20 mg PO QDAY 01/02/19 01/03/19 01/02/19 History Montelukast [Singulair] 10 mg PO DAILY 01/02/19 01/03/19 01/02/19 History Pantoprazole [Protonix TAB] 40 mg PO DAILY 01/02/19 01/02/19 Unknown History Potassium Chloride [Klor-Con 10 meq PO BID 01/02/19 01/02/19 01/02/19 History Sprinkle] Rivastigmine Patch 13.3mg/24hr 13.3 mg TRANSDERMA QDAY 01/02/19 01/02/19 01/02/19 History Acetaminophen [Acetaminophen TAB] 650 mg PO Q6H PRN #30 tablet 01/13/19 Unknown Rx DULoxetine [Cymbalta] 30 mg PO TID #90 capsule 01/13/19 Unknown Rx Docusate Sodium [Colace CAP] 100 mg PO BID PRN #30 capsule 01/13/19 Unknown Rx Mirtazapine [Remeron 15mg TAB] 15 mg PO QHS #30 tablet 01/13/19 Unknown Rx risperiDONE [RisperDAL] 0.5 mg PO QPM #7 tablet 01/13/19 Unknown Rx Active Medications: Generic Name Dose Route Start Last Admin Trade Name Freq PRN Reason Stop Dose Admin Acetaminophen 650 mg 01/07/19 09:31 01/13/19 15:14 Tylenol PO 650 mg Q6H PRN Administration Pain, Mild (1-3) Docusate Sodium 100 mg 01/06/19 10:00 01/06/19 12:22 Colace PO 100 mg BID PRN Administration Constipation Duloxetine HCl 30 mg 01/09/19 20:00 01/13/19 20:10 Cymbalta PO 30 mg TID NASEEM Administration Mirtazapine 15 mg 01/03/19 22:00 01/13/19 22:05 Remeron PO 15 mg QHS NASEEM Administration Miscellaneous Medication 13.3 mg 01/03/19 10:00 Rivastigmine Patch 13.3mg/24hr TP 01/03/19 11:00 QDAY NASEEM Miscellaneous Medication 50 mg 01/03/19 10:00 Desvenlafaxine Fumarate [Desvenlafaxine Fumarate Er] PO 01/03/19 11:00 DAILY NASEEM Risperidone 1 mg 01/09/19 15:22 01/13/19 18:08 Risperdal PO 1 mg QPM NASEEM Administration
[2019-01-13] MEDS: DULoxetine 30 MG CAP PO SCH ×3 (09:44→20:10)
[2019-01-13] MEDS: ACETAMINOPHEN 325 MG TAB PO PRN (15:14)
[2019-01-13] MEDS: risperiDONE 1 MG TAB PO SCH (18:08)
[2019-01-13] MEDS: MIRTAZAPINE 15 MG TAB PO SCH (22:05)
--- NOTE | 2019-01-14 07:02 | Discharge Summary ---
Providers - Providers Date of Admission: 01/02/19 21:43 Date of discharge: 01/14/19 Attending physician: KAMRYN PARRA MD 01/12/19 13:41 Physical Therapy Evaluation and Treat [CONS] Routine Comment: Reason For Exam: Weakness Primary care physician: [facility] Hospitalization Reason for admission: Patient reportedly attempted suicide by overdosing on 15 tablets of Tylenol Condition: Good Hospital course: The patient was provided inpatient psychiatric treatment with safe and supportive environment, group therapy, individual counseling, psychiatric medication, medication adjustment, adverse effect monitor, medical evaluation, medical treatment, social service assessment, family/social support meeting, placement assessment and psycho-education. The patients mood, anxiety, thoughts, stress management skill, cognition, impulse/anger control, motivation, understanding of disease, compliance to treatment and appreciation on family/social support are improved and stabilized. At the time of discharge, the patient had no suicidal ideas, no homicidal ideas, no aggressive thoughts, no endangering behavior and no debilitating adverse effects. Disposition: DC-01 TO HOME OR SELFCARE Allergies/Adverse Reactions: Allergies Sulfa (Sulfonamide Antibiotics) Allergy (Severe, Verified 01/04/19 19:07) Vomiting codeine Allergy (Verified 01/04/19 19:07) Rash promethazine [From Phenergan] Adverse Reaction (Verified 01/04/19 19:07) Dizziness makes pt "loopy" Vital Signs: Last Vital Signs Temp 98.7 F 01/13/19 22:00 Pulse 72 01/13/19 22:00 Resp 18 01/13/19 22:00 BP 127/58 01/13/19 22:00 Pulse Ox 95 01/13/19 22:00 Last Lab: Laboratory Last Values WBC 6.0 K/mm3 (4.5-11.0) 01/03/19 07:18 RBC 3.62 M/mm3 (3.65-5.03) L 01/03/19 07:18 Hgb 11.8 gm/dl (10.1-14.3) 01/03/19 07:18 Hct 34.4 % (30.3-42.9) 01/03/19 07:18 MCV 95 fl (79-97) 01/03/19 07:18 MCH 33 pg (28-32) H 01/03/19 07:18 MCHC 34 % (30-34) 01/03/19 07:18 RDW 13.6 % (13.2-15.2) 01/03/19 07:18 Plt Count 126 K/mm3 (140-440) L 01/03/19 07:18 Lymph % (Auto) 15.9 % (13.4-35.0) 01/03/19 07:18 [place] % (Auto) 9.2 % (0.0-7.3) H 01/03/19 07:18 Eos % (Auto) 1.1 % (0.0-4.3) 01/03/19 07:18 Baso % (Auto) 0.4 % (0.0-1.8) 01/03/19 07:18 Lymph # 1.0 K/mm3 (1.2-5.4) L 01/03/19 07:18 [place] # 0.6 K/mm3 (0.0-0.8) 01/03/19 07:18 Eos # 0.1 K/mm3 (0.0-0.4) 01/03/19 07:18 Baso # 0.0 K/mm3 (0.0-0.1) 01/03/19 07:18 Seg Neutrophils % 73.4 % (40.0-70.0) H 01/03/19 07:18 Seg Neutrophils # 4.4 K/mm3 (1.8-7.7) 01/03/19 07:18 Sodium 136 mmol/L (137-145) L 01/03/19 07:18 Potassium 4.4 mmol/L (3.6-5.0) 01/03/19 07:18 Chloride 102.2 mmol/L (98-107) 01/03/19 07:18 Carbon Dioxide 23 mmol/L (22-30) 01/03/19 07:18 Anion Gap 15 mmol/L 01/03/19 07:18 BUN 15 mg/dL (7-17) 01/03/19 07:18 Creatinine 0.7 mg/dL (0.7-1.2) 01/03/19 07:18 Estimated GFR > 60 ml/min 01/03/19 07:18 BUN/Creatinine Ratio 21 % 01/03/19 07:18 Glucose 88 mg/dL (65-100) 01/03/19 07:18 POC Glucose 92 (70-105) 01/02/19 23:02 Hemoglobin A1c 5.4 % (4-6) 01/03/19 07:18 Calcium 9.1 mg/dL (8.4-10.2) 01/03/19 07:18 Total Bilirubin 0.20 mg/dL (0.1-1.2) 01/03/19 07:18 AST 19 units/L (5-40) 01/03/19 07:18 ALT 17 units/L (7-56) 01/03/19 07:18 Alkaline Phosphatase 60 units/L (35-129) 01/03/19 07:18 Total Protein 5.1 g/dL (6.3-8.2) L 01/03/19 07:18 Albumin 3.4 g/dL (3.9-5) L 01/03/19 07:18 Albumin/Globulin Ratio 2.0 % 01/03/19 07:18 Triglycerides 101 mg/dL (2-149) 01/03/19 07:18 Cholesterol 129 mg/dL (50-199) 01/03/19 07:18 LDL Cholesterol Direct 71 mg/dL (50-130) 01/03/19 07:18 HDL Cholesterol 60 mg/dL (40-59) H 01/03/19 07:18 Cholesterol/HDL Ratio 2.15 % 01/03/19 07:18 Urine Color Yellow (Yellow) 01/03/19 04:58 Urine Turbidity Slightly-cloudy (Clear) 01/03/19 04:58 Urine pH 5.0 (5.0-7.0) 01/03/19 04:58 Ur Specific [place] 1.009 (1.003-1.030) 01/03/19 04:58 Urine Protein <15 mg/dl mg/dL (Negative) 01/03/19 04:58 Urine Glucose (UA) Neg mg/dL (Negative) 01/03/19 04:58 Urine Ketones Neg mg/dL (Negative) 01/03/19 04:58 Urine Blood Neg (Negative) 01/03/19 04:58 Urine Nitrite Neg (Negative) 01/03/19 04:58 Urine Bilirubin Neg (Negative) 01/03/19 04:58 Urine Urobilinogen < 2.0 mg/dL (<2.0) 01/03/19 04:58 Ur Leukocyte Esterase Lg (Negative) 01/03/19 04:58 Urine WBC (Auto) 127.0 /HPF (0.0-6.0) H 01/03/19 04:58 Urine RBC (Auto) 4.0 /HPF (0.0-6.0) 01/03/19 04:58 Urine Bacteria (Auto) 1+ /HPF (Negative) 01/03/19 04:58 Urine Mucus Few /HPF 01/03/19 04:58 - Discharge Diagnoses (1) MDD (major depressive disorder), recurrent episode, severe Status: Acute 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, without behavioral disturbance Status: Acute Core Measure Documentation - Palliative Care Palliative Care/ Comfort Measures: Not Applicable - Core Measures Any of the following diagnoses?: none Exam - Constitutional Vitals: Temp Pulse Resp BP Pulse Ox 98.7 F 72 18 127/58 95 01/13/19 22:00 01/13/19 22:00 01/13/19 22:00 01/13/19 22:00 01/13/19 22:00 General appearance: Present: no acute distress - EENT Eyes: Present: PERRL, EOM intact ENT: hearing intact, clear oral mucosa - Neck Neck: Present: supple, normal ROM - Respiratory Respiratory effort: normal Plan Activity: fall precautions Weight Bearing Status: Weight Bear as Tolerated Care Plan Goals: Good and stable mood Plan of Treatment: Continue totake medications as prescribed and attend follow up appointments Health Concerns: Depression Assessment: Depression, Dementia Follow up with: PRIMARY CARE, [Primary Care Provider] - 7 Days Prescriptions: Mirtazapine [Remeron 15mg TAB] 15 mg PO QHS #30 tablet Acetaminophen [Acetaminophen TAB] 650 mg PO Q6H PRN #30 tablet PRN Reason: Pain, Mild (1-3) Docusate Sodium [Colace CAP] 100 mg PO BID PRN #30 capsule PRN Reason: Constipation DULoxetine [Cymbalta] 30 mg PO TID #90 capsule risperiDONE [RisperDAL] 0.5 mg PO QPM #7 tablet
[2019-01-14] MEDS: DULoxetine 30 MG CAP PO SCH ×2 (08:47→15:18)
[2019-01-14 10:49] VITALS: BP 134/53
== END 2019-01-14 16:27 | disposition home or self-care (01) | DRG 57 ==
LOC: UNDOADMIN 16:37 → 3A 16:37 → 5A 21:43
PROVIDERS: ADMIT Psychiatry & Neurology Psychiatry; ATTEND Psychiatry & Neurology Psychiatry
DX: G30.9 Alzheimer's disease, unspecified (principal); F02.80 Dementia in other diseases classified elsewhere, unspecified severity, without behavioral disturbance, psychotic disturbance, mood disturbance, and anxiety; F33.2 Major depressive disorder, recurrent severe without psychotic features; N30.00 Acute cystitis without hematuria; Z60.2 Problems related to living alone; Z88.5 Allergy status to narcotic agent; Z88.8 Allergy status to other drugs, medicaments and biological substances; Z88.2 Allergy status to sulfonamides; Z91.5 Personal history of self-harm
CPT/HCPCS: 36415; 80053; 80061; 81001; 82962; 83036; 85025; 87086; G0378